=== PATIENT | male | born 1980 | race Two or more races ===

== ENCOUNTER 2021-07-25 16:45 | Inpatient (IN) | payer OTHER ==
[2021-07-25] MEDS ORDERED: MAGNESIUM HYDROX 2400MG/30ML ORAL SUSPENSION 30 ML CUP PO PRN (19:58)
[2021-07-25] MEDS ORDERED: MAG HYDROX/AL HYDROX/SIMETH 30 ML UNIT-DOSE CUP PO PRN (19:58)
[2021-07-25] MEDS ORDERED: MENTHOL/PHENOL 1 EACH UD MM PRN (19:58)
[2021-07-25] MEDS ORDERED: MAGNESIUM CITRATE 300 ML BOTTLE PO PRN (19:58)
[2021-07-25] MEDS ORDERED: IBUPROFEN 400 MG TABLET (FP) PO PRN (19:58)
[2021-07-25] MEDS ORDERED: ONDANSETRON *ODT* 4 MG TABLET SL PRN (19:58)
[2021-07-25] MEDS ORDERED: LORazepam 1 MG TABLET PO PRN (20:00)
[2021-07-25 23:04] VITALS: BMI 21.1
[2021-07-26] MEDS: THIAMINE HCL 100 MG TABLET (FP) PO SCH ×2 (01:27→22:24)
[2021-07-26] MEDS: MELATONIN 5 MG TABLETS PO SCH ×2 (01:27→22:24)
[2021-07-26] MEDS: BISMUTH SUBSALICYLATE 524 MG/30 ML PO PRN ×4 (01:29→22:27)
[2021-07-26] MEDS: PRENATAL VITAMINS W/ FOLIC ACID TABLET (FP) PO SCH (10:18)
[2021-07-26 10:54] LABS: HEMATOCRIT 32.6 % (35.4-49); HEMOGLOBIN 11.3 GM/dL (11.7-16.9); MCH 34.2 pg (25.7-33.7); MCHC 34.7 g/dl (32.0-35.9); MEAN CELL VOLUME 98.7 fl (80-96); MEAN PLT VOLUME 8.1 fl (7.5-11.1); PLATELET COUNT 207 10^3/uL (134-434); RDW 15.9 % (11.9-15.9); WHITE BLOOD COUNT 11.8 K/mm3 (4.0-10.0)
[2021-07-26 11:01] LABS: CALCIUM 8.5 mg/dL (8.5-10.1)
[2021-07-26 11:02] LABS: ALBUMIN 2.1 g/dl (3.4-5.0); BLOOD UREA NITROGEN 4.4 mg/dL (7-18)
[2021-07-26 11:05] LABS: CREATININE 0.3 mg/dL (0.55-1.3)
[2021-07-26 11:06] LABS: BILIRUBIN,TOTAL 4.8 mg/dL (0.2-1); TOT PROT 6.4 g/dl (6.4-8.2)
[2021-07-26] MEDS ORDERED: LORazepam 1 MG TABLET PO PRN (12:58)
[2021-07-26] MEDS ORDERED: NICOTINE 10 MG CARTRIDGE (INHALER) IH PRN (13:03)
[2021-07-26] MEDS ORDERED: LORazepam 2 MG TABLET PO ONE (13:30)
[2021-07-26] MEDS ORDERED: POTASSIUM CHLORIDE ORAL LIQUID 20 MEQ/15 ML PO ONE ×2 (14:00→18:00)
[2021-07-26] MEDS: FAMOTIDINE 20 MG TABLET PO SCH ×2 (15:01→22:24)
[2021-07-26] MEDS: LORazepam 2 MG TABLET PO SCH ×2 (18:07→22:24)
[2021-07-27] MEDS ORDERED: LORazepam 0.5 MG TABLET PO PRN
[2021-07-27] MEDS: BISMUTH SUBSALICYLATE 524 MG/30 ML PO PRN ×2 (06:43→10:36)
[2021-07-27] MEDS: LORazepam 2 MG TABLET PO SCH ×3 (06:43→18:22)
[2021-07-27] MEDS: FAMOTIDINE 20 MG TABLET PO SCH (10:34)
[2021-07-27] MEDS: PRENATAL VITAMINS W/ FOLIC ACID TABLET (FP) PO SCH (10:34)
[2021-07-27 12:23] LABS: CALCIUM 7.8 mg/dL (8.5-10.1)
[2021-07-27 12:24] LABS: ALBUMIN 2.1 g/dl (3.4-5.0); BLOOD UREA NITROGEN 4.7 mg/dL (7-18)
[2021-07-27 12:27] LABS: CREATININE 0.3 mg/dL (0.55-1.3)
[2021-07-27 12:28] LABS: BILIRUBIN,TOTAL 5.7 mg/dL (0.2-1); TOT PROT 6.5 g/dl (6.4-8.2)
[2021-07-27 13:21] VITALS: BP 123/75; PULSE 114; TEMP 99.3
[2021-07-27] MEDS ORDERED: VANCOMYCIN 1 GM in D5W (PRE-DOCKED) 1,000 MG/250 ML IVPB ONE (18:31)
[2021-07-28] MEDS ORDERED: LORazepam 1 MG TABLET PO SCH (05:00)
[2021-07-29] MEDS ORDERED: LORazepam 0.5 MG TABLET PO PRN
[2021-07-29] MEDS ORDERED: LORazepam 0.5 MG TABLET PO SCH (05:00)
[2021-07-30] MEDS ORDERED: LORazepam 0.5 MG TABLET PO ONE (05:00)
== END 2021-07-27 23:45 | disposition short-term general hospital (02) | DRG 775 ==
LOC: YASAS 16:45 → UNDOADMIN 21:24 → Y6N 21:24
PROVIDERS: ADMIT Allergy & Immunology; ATTEND Allergy & Immunology
PROC: HZ2ZZZZ Detoxification Services for Substance Abuse Treatment (ICD-10-PCS; principal; 2021-07-25)
DX: F10.230 Alcohol dependence with withdrawal, uncomplicated (principal); F17.210 Nicotine dependence, cigarettes, uncomplicated; R03.0 Elevated blood-pressure reading, without diagnosis of hypertension; R17 Unspecified jaundice; R14.0 Abdominal distension (gaseous); Z87.19 Personal history of other diseases of the digestive system
CPT/HCPCS: 36415; 80053; 85027; 86780; C9803; U0003; U0005

== ENCOUNTER 2021-07-27 14:33 | Inpatient (IN) | payer OTHER ==
[2021-07-27] MEDS ORDERED: LORazepam 2 MG/ML SDV VIAL IVPUSH ONE (15:30)
[2021-07-27 15:34] VITALS: BMI 21.1
[2021-07-27] MEDS ORDERED: CEFTRIAXONE 2 MG in DEXTROSE 5%-WATER - 50 ML IVPB ONE (15:40)
[2021-07-27] MEDS ORDERED: LORazepam 2 MG/ML SDV VIAL ONE (15:46)
[2021-07-27 16:39] LABS: BASO % 1.3 % (0-2.0); EOS % 2.1 % (0-4.5); HEMATOCRIT 33.7 % (35.4-49); HEMOGLOBIN 11.6 GM/dL (11.7-16.9); LYMPH % 18.5 % (8-40); MCHC 34.5 g/dl (32.0-35.9); MEAN CELL VOLUME 98.6 fl (80-96); MONO % 7.7 % (3.8-10.2); NEUT % 70.4 % (42.8-82.8); PLATELET COUNT 185 10^3/uL (134-434); RBC 3.42 M/mm3 (4.00-5.60); RDW 15.5 % (11.9-15.9); WHITE BLOOD COUNT 9.3 K/mm3 (4.0-10.0)
[2021-07-27] MEDS ORDERED: CEFTRIAXONE 2 GM/100 ML BAG IVPB ONE (16:39)
[2021-07-27 16:47] LABS: INR 1.71 (0.83-1.09); PROTHROMBIN TIME (PATIENT) 20.1 SEC (9.7-13.0)
[2021-07-27 16:50] LABS: ACTIVATED PTT 36.9 SECONDS (25.2-36.5)
[2021-07-27 17:18] LABS: PH,URINE 7.5 (5.0-8.0); URINE APPEARANCE CLEAR; URINE BILIRUBIN 1+ (NEGATIVE); URINE COLOR DK YELLOW; URINE GLUCOSE (UA) NEGATIVE (NEGATIVE); URINE KETONE NEGATIVE (NEGATIVE); URINE LEUK ESTERASE NEGATIVE (NEGATIVE); URINE NITRITE NEGATIVE (NEGATIVE); URINE PROTEIN NEGATIVE (NEGATIVE); URINE UROBILINOGEN 0.2 mg/dL (0.2-1.0)
[2021-07-27 17:23] LABS: ALBUMIN 2.2 g/dl (3.4-5.0); BLOOD UREA NITROGEN 4.1 mg/dL (7-18)
[2021-07-27 17:26] LABS: CREATININE 0.5 mg/dL (0.55-1.3)
[2021-07-27 17:28] LABS: BILIRUBIN,TOTAL 4.7 mg/dL (0.2-1); TOT PROT 6.6 g/dl (6.4-8.2)
[2021-07-27] MEDS ORDERED: LACTULOSE 20 GM/30 ML UDC (FOR RECTAL USE ONLY) PR ONE (18:17)
[2021-07-27] MEDS ORDERED: LACTULOSE 20 GM/30 ML UDC (FOR ORAL USE ONLY) PO ONE (18:18)
[2021-07-27] MEDS ORDERED: LACTULOSE 20 GM/30 ML UDC (FOR ORAL USE ONLY) ONE (19:19)
[2021-07-27] MEDS ORDERED: VANCOMYCIN 1 GM in D5W (PRE-DOCKED) 1,000 MG/250 ML IVPB ONE (20:53)
[2021-07-27] MEDS ORDERED: LORazepam 2 MG/ML SDV VIAL IVPUSH PRN ×2 (21:19→21:58)
[2021-07-27] MEDS ORDERED: FOLIC ACID INJECTION - 1 MG, THIAMINE HCL 200 MG, MULTIVIT INJECTION ADULT 10 ML in SOD... IVPB ONE (21:20)
[2021-07-27] MEDS ORDERED: VANCOMYCIN 1 GRAM (PRE-DOCKED) 1,000 MG/250 ML BAG IVPB ONE (21:38)
[2021-07-28 06:53] LABS: EOS % 2.1 % (0-4.5); HEMATOCRIT 34.1 % (35.4-49); HEMOGLOBIN 11.9 GM/dL (11.7-16.9); LYMPH % 20.3 % (8-40); MCH 34.7 pg (25.7-33.7); MCHC 34.9 g/dl (32.0-35.9); MEAN CELL VOLUME 99.4 fl (80-96); MEAN PLT VOLUME 8.2 fl (7.5-11.1); NEUT % 67.6 % (42.8-82.8); PLATELET COUNT 180 10^3/uL (134-434); RBC 3.43 M/mm3 (4.00-5.60); RDW 15.4 % (11.9-15.9); WHITE BLOOD COUNT 10.3 K/mm3 (4.0-10.0)
[2021-07-28 07:00] LABS: INR 1.77 (0.83-1.09); PROTHROMBIN TIME (PATIENT) 20.8 SEC (9.7-13.0)
[2021-07-28 07:02] LABS: ACTIVATED PTT 37.9 SECONDS (25.2-36.5)
[2021-07-28 07:19] LABS: MAGNESIUM 1.7 mg/dL (1.8-2.4)
[2021-07-28 07:20] LABS: ALBUMIN 2.2 g/dl (3.4-5.0); CALCIUM 8.1 mg/dL (8.5-10.1)
[2021-07-28 07:21] LABS: BLOOD UREA NITROGEN 4.2 mg/dL (7-18)
[2021-07-28 07:22] LABS: PHOSPHOROUS 3.7 mg/dL (2.5-4.9)
[2021-07-28 07:23] LABS: BILIRUBIN,DIRECT 2.6 mg/dL (0.0-0.2); CREATININE 0.3 mg/dL (0.55-1.3)
[2021-07-28 07:26] LABS: BILIRUBIN,TOTAL 4.5 mg/dL (0.2-1); TOT PROT 6.8 g/dl (6.4-8.2)
[2021-07-28] MEDS ORDERED: DEXTROSE 5% IVPB ONE ×3 (09:53→15:00)
[2021-07-28] MEDS ORDERED: ACETYLCYSTEINE IVPB ONE ×3 (09:53→15:00)
[2021-07-28] MEDS ORDERED: WATER IVPB ONE ×3 (09:53→15:00)
[2021-07-28] MEDS ORDERED: THIAMINE HCL 100 MG TABLET (FP) PO SCH (10:00)
[2021-07-28] MEDS ORDERED: LACTULOSE 20 GM/30 ML UDC (FOR ORAL USE ONLY) PO SCH (10:00)
[2021-07-28] MEDS ORDERED: PrednisoLONE 15 MG/5 ML UNIT-DOSE CUP PO SCH (10:00)
[2021-07-28] MEDS ORDERED: ENOXAPARIN NA (PORCINE) 40 MG/0.4 ML DISP.SYRIN SQ SCH (10:00)
[2021-07-28] MEDS ORDERED: FOLIC ACID 1 MG TABLET (FP) PO SCH (10:00)
[2021-07-28] MEDS ORDERED: THIAMINE HCL 100 MG TABLET (FP) ONE (10:05)
[2021-07-28] MEDS ORDERED: ENOXAPARIN NA (PORCINE) 40 MG/0.4 ML DISP.SYRIN SQ ONE (10:05)
[2021-07-28] MEDS ORDERED: LACTULOSE 20 GM/30 ML UDC (FOR ORAL USE ONLY) ONE (10:05)
[2021-07-28] MEDS ORDERED: FOLIC ACID 1 MG TABLET (FP) ONE (10:14)
[2021-07-28] MEDS ORDERED: CEFTRIAXONE 1 GM in DEXTROSE 5%-WATER - 50 ML IVPB SCH (10:45)
[2021-07-28] MEDS ORDERED: PANTOPRAZOLE SODIUM 40 MG VIAL IVPUSH SCH (10:45)
[2021-07-28] MEDS ORDERED: CEFTRIAXONE 1 GM/50 ML BAG ONE (10:50)
[2021-07-28] MEDS ORDERED: PANTOPRAZOLE SODIUM 40 MG VIAL ONE (10:50)
[2021-07-28 16:09] VITALS: BP 128/74; PULSE 90; TEMP 98.6
== END 2021-07-28 15:00 | disposition left against medical advice (07) | DRG 280 ==
LOC: JER 14:33 → JERBED 20:33
PROVIDERS: ADMIT Internal Medicine
DX: K70.31 Alcoholic cirrhosis of liver with ascites (principal); D68.9 Coagulation defect, unspecified; D37.6 Neoplasm of uncertain behavior of liver, gallbladder and bile ducts; D50.9 Iron deficiency anemia, unspecified; E88.09 Other disorders of plasma-protein metabolism, not elsewhere classified; F10.20 Alcohol dependence, uncomplicated; F17.210 Nicotine dependence, cigarettes, uncomplicated; R63.4 Abnormal weight loss; Z68.21 Body mass index [BMI] 21.0-21.9, adult
CPT/HCPCS: 36415; 71045-TC-FY; 74177-TC; 76700-TC; 80048; 80053; 80076; 81003; 82105; 82140; 82378; 83540; 83550; 83735; 84100; 85025; 85610; 85730; 86140; 86704; 86706; 86803; 87040; 87045; 87046; 87086; 87205; 87324; 87340; 87449; 87517; 93005; 93010; 99285-25; C9803; Q9967; U0003; U0005